=== PATIENT | male | born 2000 | race Caucasian/White ===

== ENCOUNTER 2021-10-19 21:36 | Emergency (ER) | payer OTHER ==
[~2021-10-19] VITALS: Ht 185.4 cm; Wt 72.7 kg
[2021-10-19 21:40] VITALS: TEMP 97.2
[2021-10-19 23:34] VITALS: BP 109/55; PULSE 91
== END 2021-10-19 23:34 | disposition home or self-care (01) ==
LOC: COL.ER 21:36
DX: S93.402A Sprain of unspecified ligament of left ankle, initial encounter (principal); X50.0XXA Overexertion from strenuous movement or load, initial encounter; Y93.61 Activity, american tackle football